=== PATIENT | female | born 1970 | race Caucasian/White ===

== ENCOUNTER 2016-09-21 04:32 | Emergency (ER) | payer OTHER ==
--- NOTE | ~2016-09-21 | CT4 ---
[facility] A Service of [facility] & [facility] RADIOLOGY TEXT RESULTS PATIENT: SERENITY CAMPOS LOCATION: SED : 72 UNIT #: [id number] AGE: [address]: Julianne Acevedo MD SEX: F ORDER DR: [id number] [address] [address] [id number] E MR#: [id number] Acc #: [id number] NAME: SERENITY CAMPOS : 1970 SEX: F STUDY DATE/TIME: 09/21/2016 8:22 UNIT: SED ROOM: STUDY DESCRIPTION: CT Abd and Pelv Wo Cont Attending Physician: Julianne Acevedo M.D. Ordering Physician: Julianne Acevedo M.D. Primary Care Physician: Kermit Reyez M.D. MEDICAL IMAGING REPORT This report is preliminary unless electronic signature is present. EXAM CT abdomen and pelvis, 09/21/2016. HISTORY Nausea, vomiting, diarrhea, abdominal pain with pressure times 2 days. Difficulty urinating and bowel movement. TECHNIQUE CT abdomen and pelvis performed without administration of oral or intravascular contrast. This CT exam was performed with one or more of the following radiation dose reduction techniques: automatic exposure control, adjustment of mA and/or kV according to patient size, and iterative reconstruction. COMPARISON 12/23/2011 FINDINGS Inferior heart and pericardium unremarkable. Lung bases clear. Diffuse fatty infiltration of liver with some sparing along the gallbladder fossa. This appears to have developed in the interval from the prior examination. No suspicious focal hepatic parenchymal abnormality is seen. The liver is enlarged, measuring approximately 22 cm in craniocaudal extent, previously 20-21 cm in craniocaudal extent. Gallbladder unremarkable. Spleen, pancreas, adrenal glands, left kidney and left ureter unremarkable. There is a small, perhaps 2-mm calcification in the deep left pelvis closely associated with the left ureter. However, I believe this is immediately adjacent to the left ureter and represents a phlebolith. There is no ureteral dilatation or inflammatory change. The right kidney shows nonobstructing intrarenal calculi. More numerous than on prior examination. Largest measures approximately 3.8 mm in diameter. There is no right-sided hydronephrosis or hydroureter. However, there is some STS. [facility] A Service of [facility] & [facility] RADIOLOGY TEXT RESULTS PATIENT: SERENITY CAMPOS LOCATION: [facility] : 72 UNIT #: [id number] AGE: [address]: Julianne Acevedo MD SEX: F ORDER DR: subtle right mid to periureteral fat stranding. This is nonspecific, but could be a reflection of recent right-sided stone passage. Alternatively, right-sided urinary tract infection could be considered. There is no periureteral fluid collection. No bladder calculus suggested. CT PELVIS: No inguinal adenopathy. Uterus normal in appearance. Bilateral ovarian cysts measuring up to 1.7 cm on the right and 1.6 cm on the left. No free fluid in the pelvis and no suspicious adnexal findings. No pelvic or retroperitoneal adenopathy. Distal esophagus, stomach, small bowel, appendix unremarkable. Colon unremarkable. No abnormal fluid collections. The aorta normal in caliber. The bony structures show no acute abnormality. IMPRESSION 1. There is some subtle periureteral fat stranding adjacent to the mid right ureter in the region of the pelvic brim. There is no associated fluid collection. There is no ureteral distension. No ureteral calculus seen at this time. The appearance could be a reflection of recent stone passage. Alternatively, it could be a reflection of urinary tract infection. Please correlate with the patient's clinical status and urinalysis. 2. Nonobstructing intrarenal calculi on the right, measuring 3-4 mm in maximum diameter. Right kidney otherwise unremarkable. 3. No left renal calculi or obstruction. 4. Diffuse fatty infiltration of the liver. This appears to have develop in the interval from 2011. There is hepatic enlargement of liver with liver measuring about 22 cm in craniocaudal extent, previously 20-21 cm. No suspicious focal hepatic parenchymal abnormality. 5. Gallbladder, pancreas, and appendix normal. 6. Bilateral ovarian cysts. Likely physiologic ovarian cyst. 7. No acute abnormalities seen along the alimentary canal. No abnormal fluid collections. No free air. Dictated by... Miles Ramirez M.D. THIS IS AN ELECTRONICALLY VERIFIED REPORT Miles Ramirez M.D. at 09/22/2016 12:11 PM MATILDA/kasey TD: 09/21/2016 13:50 JOB #: [id number] MEDICAL IMAGING REPORT [facility]. [facility] A Service of [facility] & [facility] RADIOLOGY TEXT RESULTS PATIENT: SERENITY CAMPOS LOCATION: [facility] : [birth year] UNIT #: [id number] AGE: [address]: Julianne Acevedo MD SEX: F ORDER DR: Page 1 of 1
[~2016-09-21 04:32] MED LIST: AMBIEN PO; BACTRIM DS TABL1 TA1 PO; BACTRIM DS TABL1 TAB PO; CYMBALTA PO; FLEXERIL10 MG PO; LEVOTHYROXINE50 MCG PO; MOBIC PO; NO MEDICATIONS; PHENERGAN PO; PHENERGAN W/CO120 ML PO; TOPAMAX PO; VOLTAREN75 MG PO; ZYRTEC PO
[2016-09-21] MEDS ORDERED: NO MEDICATIONS (04:49)
[2016-09-21 06:42] LABS: BASOPHIL# 0.1 X10e3 (0-0.3); BASOPHIL% 0.7 % (0-2.5); EOSINOPHIL# 0.1 X10e3 (0-0.7); EOSINOPHIL% 0.6 % (0.0-7.0); HEMATOCRIT 40.2 % (35.0-45.0); HEMOGLOBIN 13.1 gm/dL (12.0-16.0); LYMPHOCYTE# 1.4 X10e3 (1.0-3.5); LYMPHOCYTE% 12.4 % (17.0-45.0); MEAN CELL VOLUME 87.5 FL (83-96); MEAN CORPUSCULAR HEMOGLOBIN 28.5 PG (28-34); MEAN CORPUSCULAR HGB CONC 32.6 g/dL (30-36); MEAN PLATELET VOLUME 8.9 FL (6.5-11.5); MONOCYTE# 0.6 X10e3 (0-1.0); MONOCYTE% 5.1 % (3.0-12.0); NEUTROPHIL% 81.2 % (40-75); PLATELET COUNT 277 X10e3 (140-420); RED CELL DISTRIBUTION WIDTH 14.1 % (11.0-15.5); WHITE BLOOD COUNT 11.1 X10e3 (4.0-10.5)
[2016-09-21 06:59] LABS: DIFF IND NO
[2016-09-21 07:43] LABS: URINE APPEARANCE SL CLOUDY; URINE BILIRUBIN NEG (NEG); URINE BLOOD 3+ (NEG); URINE COLOR YELLOW; URINE GLUCOSE 300 MG/DL (NORM); URINE KETONE NEG (NEG); URINE LEUKOCYTE ESTERASE NEG (NEG); URINE NITRATE NEG (NEG); URINE PROTEIN 1+ (NEG); URINE SOURCE CLEAN CATCH; URINE SPECIFIC GRAVITY 1.025 (1.003-1.035); URINE UROBILINOGEN 0.2 MG/DL (NORM)
[2016-09-21 07:45] LABS: MICRO INDICATED? YES
[2016-09-21 07:52] LABS: CULTURE INDICATED? NO; URINE BACTERIA NEG (NEG); URINE MUCUS PRESENT; URINE RBC 25-50 /[HPF] (0-2); URINE SQUAMOUS EPITHELIAL CELL FEW /[HPF]; URINE WBC NEG /[HPF] (0-5)
[2016-09-21 10:27] LABS: ALBUMIN SERUM 3.3 g/dL (3.5-5.0); BILIRUBIN, DIRECT 0.1 mg/dL (0.0-0.2); BILIRUBIN,INDIRECT 0.2 mg/dL (0.0-0.9); BILIRUBIN,TOTAL 0.3 mg/dL (0.2-2.0); BUN/CREATININE RATIO 13.33; CREATININE SERUM 0.9 mg/dL (0.6-1.4); GLOM FILT RATE Estimated 77.3 mL/min (>60); POTASSIUM 4.5 mmol/L (3.5-5.1); PROTEIN TOTAL SERUM 6.4 g/dL (6.0-8.3)
== END 2016-09-21 11:20 | disposition home or self-care (01) ==
LOC: SED 04:32
PROVIDERS: Emergency Medicine
DX: N20.1 Calculus of ureter (principal); R19.7 Diarrhea, unspecified; E03.9 Hypothyroidism, unspecified; Z87.442 Personal history of urinary calculi
CPT/HCPCS: 36415; 74176; 80048; 80076; 81003; 83690; 84703; 85025; 96361; 96374; 96375; 99284; J2405

== ENCOUNTER → 2016-10-01 | Outpatient (CLI) | payer OTHER ==
--- NOTE | ~2016-10-01 | US6 ---
[facility] A Service of [facility] & [facility] RADIOLOGY TEXT RESULTS PATIENT: SERENITY CAMPOS LOCATION: [facility] : 72 UNIT #: [id number] AGE: [address]: Kermit Reyez MD SEX: F ORDER DR: [id number] [address] [address] [id number] O MR#: [id number] Acc #: [id number] NAME: SERENITY CAMPOS : 1970 SEX: F STUDY DATE/TIME: 10/01/2016 8:41 UNIT: [facility] ROOM: STUDY DESCRIPTION: US Abdominal Limited Attending Physician: Kermit Reyez M.D. Referring Physician: Kermit Reyez M.D. Ordering Physician: Kermit Reyez M.D. Primary Care Physician: Kermit Reyez M.D. MEDICAL IMAGING REPORT This report is preliminary unless electronic signature is present. EXAM Right upper quadrant ultrasound 10/01/2016. HISTORY Right flank pain and right upper quadrant abdominal pain for 3 weeks. Abnormally elevated liver enzymes. Vomiting off and on for 3 weeks. FINDINGS The liver demonstrates an increase in echotexture with attenuation of the ultrasound beam characteristic of fatty infiltration. No cystic or solid mass lesions were seen in the liver. The intra and extrahepatic bile ducts are not dilated. The gallbladder is normal with no evidence of cholelithiasis, wall thickening or pericholecystic fluid. The common duct measures 4 mm. The pancreas is obscured by bowel gas. The right kidney is normal. IMPRESSION 1. Fatty infiltration of the liver. 2. Normal gallbladder. 3. Poor visualization of the pancreas due to overlying bowel gas. Dictated by... Amos Stearns M.D. THIS IS AN ELECTRONICALLY VERIFIED REPORT Amos Stearns M.D. at 10/01/2016 5:35 PM KRT/bd TD: 10/01/2016 14:08 JOB #: [id number] MEDICAL IMAGING REPORT [facility] A Service of [facility] & [facility] RADIOLOGY TEXT RESULTS PATIENT: SERENITY CAMPOS LOCATION: [facility] : 72 UNIT #: [id number] AGE: [address]: Kermit Reyez MD SEX: F ORDER DR: Page 1 of 1
== END | disposition home or self-care (01) ==
LOC: SGUS 08:29
DX: R10.11 Right upper quadrant pain (principal); K76.0 Fatty (change of) liver, not elsewhere classified
CPT/HCPCS: 76705

== ENCOUNTER 2016-10-08 23:23 | Emergency (ER) | payer OTHER ==
[2016-10-08 23:50] LABS: BASOPHIL# 0.1 X10e3 (0-0.3); BASOPHIL% 0.5 % (0-2.5); DIFF IND NO; EOSINOPHIL% 0.1 % (0.0-7.0); HEMATOCRIT 41.2 % (35.0-45.0); HEMOGLOBIN 13.7 gm/dL (12.0-16.0); LYMPHOCYTE# 1.1 X10e3 (1.0-3.5); LYMPHOCYTE% 7.1 % (17.0-45.0); MEAN CELL VOLUME 86.7 FL (83-96); MEAN CORPUSCULAR HEMOGLOBIN 28.9 PG (28-34); MEAN CORPUSCULAR HGB CONC 33.3 g/dL (30-36); MEAN PLATELET VOLUME 8.7 FL (6.5-11.5); MONOCYTE# 0.7 X10e3 (0-1.0); MONOCYTE% 4.1 % (3.0-12.0); NEUTROPHIL% 88.2 % (40-75); PLATELET COUNT 279 X10e3 (140-420); RED BLOOD COUNT 4.75 X10e (3.90-5.30); RED CELL DISTRIBUTION WIDTH 14.2 % (11.0-15.5); WHITE BLOOD COUNT 15.9 X10e3 (4.0-10.5)
[2016-10-09 00:05] LABS: BUN/CREATININE RATIO 11.87; CALCIUM SERUM 8.5 mg/dL (8.4-10.2); CREATININE SERUM 1.6 mg/dL (0.6-1.4); GLOM FILT RATE Estimated 38.5 mL/min (>60); POTASSIUM 4.6 mmol/L (3.5-5.1)
[2016-10-09 01:13] LABS: URINE SOURCE CLEAN CATCH
[2016-10-09 01:16] LABS: URINE APPEARANCE SL CLOUDY; URINE BLOOD 3+ (NEG); URINE GLUCOSE 50 MG/DL (NORM); URINE KETONE 1+ (NEG); URINE LEUKOCYTE ESTERASE NEG (NEG); URINE NITRATE POS (NEG); URINE PROTEIN 2+ (NEG); URINE SPECIFIC GRAVITY >=1.030 (1.003-1.035)
[2016-10-09 01:23] LABS: URINE BILIRUBIN NEG (NEG)
[2016-10-09 01:24] LABS: MICRO INDICATED? YES; URINE COLOR ORANGE
[2016-10-09 01:26] LABS: URINE RBC INNUM /[HPF] (0-2)
[2016-10-09 01:27] LABS: CULTURE INDICATED? YES; URINE AMORPHOUS SEDIMENT AMORP URATES; URINE BACTERIA 1+ (NEG); URINE CRYSTALS URIC ACID /[HPF]; URINE MUCUS PRESENT; URINE SQUAMOUS EPITHELIAL CELL OCCAS /[HPF]; URINE TRANSITIONAL EPI CELLS OCCAS /[HPF]
== END 2016-10-09 03:08 | disposition home or self-care (01) ==
LOC: SED 23:23
PROVIDERS: Emergency Medicine
DX: N20.1 Calculus of ureter (principal); Z87.442 Personal history of urinary calculi
CPT/HCPCS: 36415; 80048; 81003; 82947; 84703; 85025; 87086; 96361; 96374; 96375; 99284; J1885; J2405